=== PATIENT | female | born 1955 | race Caucasian/White ===

== ENCOUNTER 2016-11-10 07:27 | Day surgery (SDC) | payer BC ==
[2016-11-09 16:59] VITALS: BMI 22.2
[2016-11-10] MEDS ORDERED: ROPIVACAINE HCL 0.5% 30ML VIAL ONE (08:08)
[2016-11-10] MEDS ORDERED: MIDAZOLAM HCL 2 MG/2 ML SINGLE DOSE VIAL ONE ×2 (08:09)
[2016-11-10 08:13] VITALS: TEMP 97.5
--- NOTE | 2016-11-10 08:32 | HP ---
Satellite H - Chief Complaint Chief Complaint: left wrist fx - Past Medical History Allergies/Adverse Reactions: Allergies Allergy/AdvReac Type Severity Reaction Status Date / Time No Known Allergies Allergy Verified 11/09/16 17:00 - Current Medications Current Medications: Home Medications Medication Instructions Recorded Oxycodone HCl/Acetaminophen 1 - 2 tab PO Q6H #50 tab MDD 8 11/10/16 [Percocet 5-325 mg Tablet -] Satellite Physical Exam - Physical Examination Vital Signs: Vital Signs Period Temp Pulse Resp BP Sys/Quintana Pulse Ox Last 24 Hr 97.5 F 50 18 129/59 95 General Appearance: Well Nourished, Well Developed, Alert & Oriented x3 ENT: Clear Lung: Normal air movement Heart: Regular rate & rhythm Extremities: Other (left wrist- splint in place, + ttp, + swelling, + deformity , nvi xrays show displaced distal radius fx) Neurological: Intact, Alert, Oriented Satellite Impression/Plan - Impression/Plan Impression: left distal radius fx Operative Procedure: left distal radius orif Date to be Performed: 11/10/16
[2016-11-10] MEDS ORDERED: ceFAZolin SODIUM 1 GM VIAL IVPB ONE (09:06)
--- NOTE | 2016-11-10 10:04 | OP ---
Operative Note - Note: Operative Date: 11/10/16 ([facility]) Pre-Operative Diagnosis: left distal radius fx Operation: left distal radius orif Post-Operative Diagnosis: Same as Pre-op Surgeon: Marlon Trinh Jordan Worker: Osiel Jefferson Anesthesiologist/FRUIT HARVESTER: Lambert Rivas Anesthesia: Local Estimated Blood Loss (mls): 0 (tourniquet) Operative Report Dictated: Yes
--- NOTE | 2016-11-10 10:47 | OP ---
DATE OF OPERATION: 11/10/2016 PREOPERATIVE DIAGNOSIS: Left distal radius fracture. POSTOPERATIVE DIAGNOSIS: Left distal radius fracture. PROCEDURE: Open reduction internal fixation left distal radius fracture. SURGICAL ATTENDING: Marlon Trinh MD RECORDS ASSISTANT: KARLA Serrano ANESTHESIA: Axillary block and IV sedation. CLOSURE: [employer] Distal Plate with appropriate screws, 2-0 Vicryl for quadratus, 3-0 Vicryl for subcutaneous tissue, and 3-0 Monocryl subcuticular for skin with skin glue. ESTIMATED BLOOD LOSS: Negligible. TOURNIQUET TIME: Approximately 30 minutes. COMPLICATIONS: No complications. CONDITION: To recovery room in stable condition. DESCRIPTION OF OPERATIVE PROCEDURE: Patient was taken to the operating room on November 10, 2016. Axillary block as well as sedation was administered by the anesthesiologist. IV Kefzol was administered prophylactically prior to the case. A well-padded pneumatic tourniquet was placed on the left proximal arm. The left upper extremity was prepped and draped in the usual sterile fashion. The arm was exsanguinated with an Esmarch bandage, and the tourniquet was inflated to 250 mmHg. A 60-cm longitudinal incision directly over the distal FCR tendon was incised. Hemostasis was achieved with Bovie cautery. Sharp dissection was carried through the sheath of the tendon. The tendon was then retracted, and the floor of the sheath was opened exposing the pronator quadratus beneath. The quadratus was detached from its radial side and retracted ulnarly exposing the distal radius. Curettes and irrigation were used to free up the fracture. A reduction maneuver achieved good interlocking of the fragment and anatomical uatsdin of the fracture. The fracture was found to have a horizontal and a vertical component to it. An anatomical reduction was obtained. A standard left [employer] Volar Plate was then placed. It was provisionally fixated with two K-wires ensuring excellent position of the plate. This was confirmed of AP and lateral planes by using the image intensifier. Four distal screws and four proximal screws were drilled depth gauge and secured with the appropriate size and type of screw and length of screw. Excellent reduction and placement of the hardware was confirmed by the image intensifier in the AP, lateral, and oblique views with no penetration into the wrist joint. Range of motion revealed excellent stability of the fracture post fixation. The incision was irrigated. The pronator quadratus was tacked back to its anatomic location using 2-0 Vicryl and 3-0 for subcutaneous and 4-0 Monocryl subcuticular stitch with skin glue for skin. Sterile pressure dressing with fluffs in between the fingers as well as a volar slab was applied. Patient was awakened from anesthesia and transferred to recovery in stable condition. No complications. Estimated blood loss negligible. Tourniquet time was approximately 30 minutes. Chary MILLS/[id number]
[2016-11-10] MEDS ORDERED: ceFAZolin SODIUM 1 GM VIAL ONE (10:51)
[2016-11-10 13:04] VITALS: BP 134/75; PULSE 58
== END 2016-11-10 11:40 | disposition home or self-care (01) ==
LOC: JASU-SURG 07:27
PROVIDERS: ATTEND Orthopaedic Surgery
PROC: 0PSJ04Z Reposition Left Radius with Internal Fixation Device, Open Approach (ICD-10-PCS; principal; 2016-11-10 08:45)
DX: S52.502A Unspecified fracture of the lower end of left radius, initial encounter for closed fracture (principal); X58.XXXA Exposure to other specified factors, initial encounter; Y93.9 Activity, unspecified; Y92.9 Unspecified place or not applicable; Y99.9 Unspecified external cause status
CPT/HCPCS: 76000-TC

== ENCOUNTER 2020-04-25 08:47 | Emergency (ER) | payer OTHER ==
[2020-04-25 08:52] VITALS: BP 118/68; PULSE 48; TEMP 97.8; BMI 29.0
== END 2020-04-25 09:31 | disposition home or self-care (01) ==
LOC: JERFT 08:47
DX: H00.011 Hordeolum externum right upper eyelid (principal)
CPT/HCPCS: 99283-25

== ENCOUNTER 2020-04-30 04:36 | Day surgery (SDC) | payer BC, OTHER ==
[2020-04-28 11:37] VITALS: BMI 29.0
[2020-04-30] MEDS ORDERED: LIDOCAINE 1%/EPI 1:100000 (50 ML MULTI DOSE VIAL) ONE (07:33)
[2020-04-30] MEDS ORDERED: MIDAZOLAM HCL 2 MG/2 ML SINGLE DOSE VIAL ONE ×2 (07:52)
[2020-04-30] MEDS ORDERED: PROPOFOL 20 ML ONE ×3 (07:53→08:29)
[2020-04-30] MEDS ORDERED: LIDOCAINE 1%/EPI 1:100000 (20 ML MULTI DOSE VIAL) IJ ONE (08:20)
[2020-04-30] MEDS ORDERED: BUPIVACAINE HCL/PF 0.5% (5 MG/ML) 30 ML VIAL IJ ONE ×2 (08:20→08:37)
[2020-04-30] MEDS ORDERED: oxyCODONE HCL 5 MG TABLET PO PRN (08:52)
[2020-04-30] MEDS ORDERED: ONDANSETRON 4 MG/2 ML VIAL IVPUSH PRN (08:52)
[2020-04-30] MEDS ORDERED: LACTATED RINGERS SOLUTION 1,000 ML IV SCH (09:00)
[2020-04-30] MEDS ORDERED: ONDANSETRON 4 MG/2 ML VIAL ONE (09:06)
[2020-04-30 10:59] VITALS: BP 138/76; PULSE 47; TEMP 98
== END 2020-04-30 11:31 | disposition home or self-care (01) ==
LOC: JASU-SURG 04:36
PROVIDERS: ATTEND Orthopaedic Surgery
PROC: 0SBC4ZZ Excision of Right Knee Joint, Percutaneous Endoscopic Approach (ICD-10-PCS; principal; 2020-04-30 08:00)
DX: S83.271A Complex tear of lateral meniscus, current injury, right knee, initial encounter (principal); X58.XXXA Exposure to other specified factors, initial encounter; Y93.9 Activity, unspecified; Y92.9 Unspecified place or not applicable; Y99.9 Unspecified external cause status
CPT/HCPCS: 88304-TC; 94760